=== PATIENT | male | born 1945 | race Caucasian/White ===

== ENCOUNTER 2018-02-16 10:52 | Outpatient (CLI) | payer MEDICARE ==
[2018-02-16 11:18] LABS: #Basophils 0.1 thou/uL (0.0-0.2); #Eosinphils 0.4 thou/uL (0.0-0.7); #Lymphocytes 1.9 thou/uL (1.20-3.40); #Monocytes 0.8 thou/uL (0.11-0.59); #Neutrophils 4.8 thou/uL (1.40-6.50); %Basophils 1.3 % (0.0-1.0); %Eosinophils 5.4 % (0.0-10.0); %Lymphocytes 23.8 % (21.0-51.0); %Monocytes 9.3 % (0.0-10.0); %Neutrophils 60.2 % (42.0-75.0); Hemoglobin 13.2 g/dL (14.0-18.0); Mean Corpuscular HGB CONC 32.8 g/dL (32.0-36.0); Mean Corpuscular Volume 94.7 fL (78.0-98.0); Platelet Count 125 thou/uL (130-400); Red Blood Cell (RBC) Count 4.25 mill/uL (4.70-6.10)
== END 2018-02-16 10:53 | disposition home or self-care (01) ==
LOC: MADLAB 10:52
PROVIDERS: ATTEND Internal Medicine Cardiovascular Disease
DX: Z01.810 Encounter for preprocedural cardiovascular examination (principal); I25.10 Atherosclerotic heart disease of native coronary artery without angina pectoris
CPT/HCPCS: 36415; 85025

== ENCOUNTER 2020-02-10 07:19 | Outpatient (CLI) | payer MEDICARE ==
[2020-02-10 08:19] LABS: Anion Gap 14 mmol/L (10-20); BUN (Urea Nitrogen) 26 mg/dL (8.4-25.7); Calc. Creatinine Clearance 0 mL/min (70-130); Calcium 8.9 mg/dL (7.8-10.44); Carbon Dioxide 27 mmol/L (23-31); Chloride 108 mmol/L (98-107); Estimated GFR-MDRD 52; Glucose 109 mg/dL (83-110); Potassium 4.3 mmol/L (3.5-5.1); Sodium 145 mmol/L (136-145)
[2020-02-10 08:26] LABS: #Basophils 0.1 thou/uL (0.0-0.2); #Eosinphils 0.5 thou/uL (0.0-0.7); #Lymphocytes 1.9 thou/uL (1.20-3.40); #Monocytes 1.1 thou/uL (0.11-0.59); #Neutrophils 4.6 thou/uL (1.40-6.50); %Basophils 1.6 % (0.0-1.0); %Eosinophils 5.8 % (0.0-10.0); %Lymphocytes 22.9 % (21.0-51.0); %Monocytes 13.1 % (0.0-10.0); %Neutrophils 56.6 % (42.0-75.0); Hemoglobin 11.4 g/dL (14.0-18.0); Mean Corpuscular HGB CONC 31.8 g/dL (32.0-36.0); Mean Corpuscular Hemoglobin 30.1 pg (27.0-31.0); Mean Corpuscular Volume 94.5 fL (78.0-98.0); Mean Platelet Volume 9.2 fL (7.4-10.4); Platelet Count 145 thou/uL (130-400); RBC Distribution Width 13.7 % (11.5-14.5); Red Blood Cell (RBC) Count 3.81 mill/uL (4.70-6.10); White Blood Cell (WBC) Count 8.1 thou/uL (4.8-10.8)
[2020-02-10 17:33] LABS: SARS-CoV-2 MS2 Positive; SARS-CoV-2 N Gene Negative; SARS-CoV-2 S Gene Negative; SARS-CoV-2 by NAA Not Detected (NotDetected); SARS-CoV-2 orf1ab Negative
== END 2020-02-10 07:20 | disposition home or self-care (01) ==
LOC: MADLAB 07:19
DX: I87.2 Venous insufficiency (chronic) (peripheral) (principal); I73.9 Peripheral vascular disease, unspecified; Z20.828 Contact with and (suspected) exposure to other viral communicable diseases
CPT/HCPCS: 36415; 80048; 85025; 87635; U0003

== ENCOUNTER 2020-02-24 12:53 | Emergency (ER) | payer MEDICARE ==
--- NOTE | 2020-02-24 13:54 | RAD ---
LEFT FOOT 3 VIEWS: Date: 02/24/2020 HISTORY: Injury. FINDINGS: Tarsals appear intact. Degenerative changes are noted in the intertarsal joints and small spur from t he plantar calcaneus. There is a fracture involving the mid shaft of the second metatarsal without significant displacement apparent. MTP and IP joints are unremarkable. No other fracture seen. IMPRESSION: Fracture mid shaft second metatarsal. POS: AGW
== END 2020-02-24 14:08 | disposition home or self-care (01) ==
LOC: MADERS 12:53
DX: S92.322A Displaced fracture of second metatarsal bone, left foot, initial encounter for closed fracture (principal); E78.5 Hyperlipidemia, unspecified; E78.00 Pure hypercholesterolemia, unspecified; F41.9 Anxiety disorder, unspecified; Z95.1 Presence of aortocoronary bypass graft; Z86.718 Personal history of other venous thrombosis and embolism; Z79.01 Long term (current) use of anticoagulants; Z79.899 Other long term (current) drug therapy
CPT/HCPCS: 12001

== ENCOUNTER 2020-02-25 10:08 | Emergency (ER) | payer MEDICARE ==
[2020-02-25] MEDS ORDERED: Silver Nitrate Application 1 EACH ONE (11:17)
[2020-02-25] MEDS ORDERED: Boostrix 0.5 ML (Tdap) VIAL ONE (11:41)
== END 2020-02-25 11:47 | disposition home or self-care (01) ==
LOC: MADERS 10:08
DX: R58 Hemorrhage, not elsewhere classified (principal); S90.812D Abrasion, left foot, subsequent encounter; R60.0 Localized edema; Z79.899 Other long term (current) drug therapy; Z79.01 Long term (current) use of anticoagulants; X58.XXXD Exposure to other specified factors, subsequent encounter
CPT/HCPCS: 90471; 90715; 99283

== ENCOUNTER 2021-11-01 18:58 | Emergency (ER) | payer MEDICARE | END 2021-11-01 19:59 | disposition home or self-care (01) | LOC: MADERS 18:58 | DX: I10 Essential (primary) hypertension (principal); I25.10 Atherosclerotic heart disease of native coronary artery without angina pectoris; E66.9 Obesity, unspecified; I73.9 Peripheral vascular disease, unspecified; Z68.45 Body mass index [BMI] 70 or greater, adult; Z79.899 Other long term (current) drug therapy | CPT/HCPCS: 99283 ==

== ENCOUNTER 2024-04-23 11:43 | Emergency (ER) | payer MEDICARE ==
[2024-04-23] MEDS ORDERED: Sodium Chloride 0.9% 1,000 ML ONE (12:32)
[2024-04-23 12:36] LABS: Base Excess-Venous -1.1 mmol/L (-2.0 to 3.0); CO2 Tension (PvCO2) 40.9 mmHg (42.0-51.0); Calcium, Ionized 1.16 mmol/L (1.15-1.33); Chloride 115 mmol/L (98-107); Hemoglobin - Calc 9.7 g/dL (14.0-18.0); Potassium 4.1 mmol/L (3.5-5.1); Sodium 148 mmol/L (138-145); T. Carbon Dioxide 25.3 mmol/L (22.0-28.0); vO2 Saturation-calc 84.7 % (60.0-85.0)
[2024-04-23 12:42] LABS: ALT (SGPT) 29 U/L (8-55); AST (SGOT) 64 U/L (5-34); Albumin 3.3 g/dL (3.4-4.8); Alkaline Phosphatase 153 U/L (40-110); Anion Gap 13 mmol/L (10-20); BUN (Urea Nitrogen) 21 mg/dL (8.4-25.7); Calc. Creatinine Clearance 0 mL/min (70-130); Calcium 8.8 mg/dL (7.8-10.44); Carbon Dioxide 21 mmol/L (23-31); Chloride 116 mmol/L (98-107); Estimated GFR 56; Globulin 3.4 g/dL (2.4-3.5); Glucose 110 mg/dL (83-110); Magnesium 2.2 mg/dL (1.6-2.6); Potassium 4.1 mmol/L (3.5-5.1); Protein, Total 6.7 g/dL (5.8-8.1); Sodium 146 mmol/L (136-145); Troponin I 0.042 ng/mL (< 0.028)
[2024-04-23 12:43] LABS: Anisocytosis SLIGHT = 6-15 cells (100X) (0-5/hpf); Band 3 % (5-11); Eosinophils 4 % (0-10); Hematocrit 29.6 % (42.0-52.0); Hemoglobin 9.1 g/dL (14.0-18.0); Hypochromia SLIGHT = 6-15 cells (100X) (0-5/hpf); Lymphocytes 15 % (21-51); MDiff Complete? YES; Mean Corpuscular HGB CONC 30.7 g/dL (32.0-36.0); Mean Corpuscular Hemoglobin 29.3 pg (27.0-31.0); Mean Corpuscular Volume 95.3 fl (78.0-98.0); Mean Platelet Volume 8.8 fL (7.4-10.4); Monocytes 16 % (0-10); Neutrophil 53 % (42-75); Platelet Adequacy Comment Appears Decreased; Platelet Count 101 10x3/uL (130-400); RBC Distribution Width 22.2 % (11.5-14.5); Red Blood Cell (RBC) Count 3.11 mill/uL (4.70-6.10); White Blood Cell (WBC) Count 5.5 10x3/uL (4.8-10.8)
[2024-04-23 13:40] LABS: Bilirubin Negative (Negative); Blood, Urine Negative (Negative); Clarity Clear (Clear); Glucose, Urine (Dipstick) Negative (Negative); Ketone, Urine Negative (Negative); Leukocyte Negative (Negative); Nitrite Negative (Negative); Protein, Urine (Dipstick) Negative (Neg-Trace); Specific Gravity, Urine 1.015 (1.005-1.030); Urobilinogen 0.2 mg/dL (Less than 2)
[2024-04-23 13:46] LABS: Amphetamine Not Detected (NotDetected); Barbiturates Screen Not Detected (NotDetected); Benzodiazepine Screen Not Detected (NotDetected); Cocaine Metabolite Screen Not Detected (NotDetected); Methadone Not Detected (NotDetected); Methamphetamine Not Detected (NotDetected); Opiate Screen Not Detected (NotDetected); Oxycodone Screen Not Detected (NotDetected); Phencyclidine (PCP) Not Detected (NotDetected); THC/Cannabinoid Screen Not Detected (NotDetected); Tricyclic Screen Not Detected (NotDetected)
[2024-04-23 13:47] LABS: Bacteria/HPF None Seen HPF (None Seen); CAUTI Indications for Culture Alt mental st,lethar; RBC/HPF 0-3 HPF (0-3); Squamous Epithelial 0-3 HPF (0-3); WBC/HPF 0-3 HPF (0-3)
[2024-04-23 13:48] LABS: Urine Culture Reflex No No
[2024-04-23 14:09] LABS: Troponin I 0.053 ng/mL (< 0.028)
[2024-04-23] MEDS ORDERED: Lorazepam 2 MG/ML VIAL ONE ×2 (18:41→19:33)
[2024-04-23 20:26] LABS: Troponin I 0.062 ng/mL (< 0.028)
== END 2024-04-23 22:29 | disposition short-term general hospital (02) ==
LOC: MADERS 11:43
DX: R41.82 Altered mental status, unspecified (principal); I11.0 Hypertensive heart disease with heart failure; I50.9 Heart failure, unspecified; I25.10 Atherosclerotic heart disease of native coronary artery without angina pectoris; G25.81 Restless legs syndrome; Z79.82 Long term (current) use of aspirin; Z79.899 Other long term (current) drug therapy
CPT/HCPCS: 70450; 71045; 72125; 80053; 80306; 81001; 82330; 82435; 82803; 83605; 83735; 83880; 84132; 84295; 84484; 85014; 85025; 93005; 96374; 96376; J2060; J7030

== ENCOUNTER 2024-04-26 16:09 | Inpatient (IN) | payer MEDICARE ==
[2024-04-26 22:57] VITALS: BMI 30.1
[2024-04-26] MEDS ORDERED: Acetaminophen 325 MG TAB PO PRN (23:00)
[2024-04-27] MEDS ORDERED: Senokot S 8.6-50 MG TAB PO PRN (09:31)
[2024-04-27] MEDS ORDERED: Acetaminophen 325 MG TAB PO PRN (09:31)
[2024-04-27] MEDS ORDERED: Bisacodyl 10 MG SUPP PR PRN (09:31)
[2024-04-27] MEDS ORDERED: Bisacodyl 5 MG TAB PO PRN (09:31)
[2024-04-27] MEDS: Lactulose 20 GM (30 mL) UDCUP PO SCH (14:54)
[2024-04-27 14:59] VITALS: BMI 30.1
[2024-04-27] MEDS: Ezetimibe 10 MG TAB PO SCH (20:22)
[2024-04-27] MEDS: Losartan 25 MG TAB PO SCH (20:22)
[2024-04-27] MEDS: Ferrous Sulfate 325 MG TAB PO SCH (20:22)
[2024-04-27] MEDS: Simvastatin 40 MG TAB PO SCH (20:22)
[2024-04-27] MEDS: Folic Acid 1 MG TAB PO SCH (20:22)
[2024-04-28 05:51] LABS: ALT (SGPT) 29 U/L (8-55); AST (SGOT) 66 U/L (5-34); Albumin 2.7 g/dL (3.4-4.8); Alkaline Phosphatase 169 U/L (40-110); Anion Gap 12 mmol/L (10-20); BUN (Urea Nitrogen) 15 mg/dL (8.4-25.7); Bilirubin, Total 0.9 mg/dL (0.2-1.2); Calc. Creatinine Clearance 78 mL/min (70-130); Calcium 8.2 mg/dL (7.8-10.44); Carbon Dioxide 20 mmol/L (23-31); Chloride 116 mmol/L (98-107); Estimated GFR 67; Globulin 3.2 g/dL (2.4-3.5); Glucose 99 mg/dL (83-110); Potassium 3.8 mmol/L (3.5-5.1); Protein, Total 5.9 g/dL (5.8-8.1); Sodium 144 mmol/L (136-145)
[2024-04-28 06:23] LABS: Hematocrit 26.2 % (42.0-52.0); Hemoglobin 8.3 g/dL (14.0-18.0); Mean Corpuscular HGB CONC 31.7 g/dL (32.0-36.0); Mean Corpuscular Hemoglobin 30.3 pg (27.0-31.0); Mean Corpuscular Volume 95.7 fl (78.0-98.0); Mean Platelet Volume 9.6 fL (7.4-10.4); Platelet Count 107 10x3/uL (130-400); Red Blood Cell (RBC) Count 2.74 mill/uL (4.70-6.10); White Blood Cell (WBC) Count 6.1 10x3/uL (4.8-10.8)
[2024-04-28 06:24] LABS: Band 1 % (5-11); Eosinophils 7 % (0-10); Lymphocytes 23 % (21-51); MDiff Complete? YES; Manual Diff?? YES; Monocytes 18 % (0-10); Neutrophil 51 % (42-75)
[2024-04-28 06:25] LABS: Anisocytosis SLIGHT = 6-15 cells (100X) (0-5/hpf); Platelet Adequacy Comment Appears Decreased
[2024-04-28] MEDS: Furosemide 40 MG TAB PO SCH (09:05)
[2024-04-28] MEDS: Pantoprazole DR 40 MG TAB PO SCH (09:05)
[2024-04-28] MEDS: Aspirin Chewable 81 MG TAB PO SCH (09:05)
[2024-04-28] MEDS: Potassium Chloride 10 MEQ TAB PO SCH (09:05)
[2024-04-28] MEDS: sulfaSALAzine 500 MG TAB PO SCH (09:05)
[2024-05-04] MEDS: Ondansetron ODT 4 MG TAB SL PRN (16:45)
[2024-05-05] MEDS: Magnesium Oxide 400 MG TAB PO PRN (20:35)
[2024-05-07 19:55] VITALS: BP 131/80; TEMP 98.8
== END 2024-05-07 20:17 | disposition home or self-care (01) | DRG 945 ==
LOC: MADMS 21:38
PROVIDERS: ADMIT Family Medicine; ATTEND Family Medicine
PROC: F07Z9ZZ Gait Training/Functional Ambulation Treatment (ICD-10-PCS; principal; 2024-04-28)
DX: R53.81 Other malaise (principal); C16.9 Malignant neoplasm of stomach, unspecified; K51.90 Ulcerative colitis, unspecified, without complications; I50.22 Chronic systolic (congestive) heart failure; K74.60 Unspecified cirrhosis of liver; I25.10 Atherosclerotic heart disease of native coronary artery without angina pectoris; E66.9 Obesity, unspecified; R29.6 Repeated falls; D63.8 Anemia in other chronic diseases classified elsewhere; E78.5 Hyperlipidemia, unspecified; K76.82 Hepatic encephalopathy; I11.0 Hypertensive heart disease with heart failure; Z90.49 Acquired absence of other specified parts of digestive tract; Z95.1 Presence of aortocoronary bypass graft; Z86.718 Personal history of other venous thrombosis and embolism; Z79.01 Long term (current) use of anticoagulants; Z88.1 Allergy status to other antibiotic agents
CPT/HCPCS: 36415; 70450; 71045; 72125; 80053; 80306; 81001; 82140; 82274; 82330; 82435; 82803; 83605; 83735; 83880; 84132; 84295; 84484; 85014; 85025; 93005; 96374; 96376; J2060; J7030; Q0162

== ENCOUNTER 2024-04-26 17:29 | Emergency (ER) | payer MEDICARE ==
[2024-04-26 19:16] LABS: ALT (SGPT) 29 U/L (8-55); AST (SGOT) 67 U/L (5-34); Albumin 2.7 g/dL (3.4-4.8); Alkaline Phosphatase 157 U/L (40-110); Anion Gap 12 mmol/L (10-20); BUN (Urea Nitrogen) 20 mg/dL (8.4-25.7); Bilirubin, Total 0.9 mg/dL (0.2-1.2); Calc. Creatinine Clearance 0 mL/min (70-130); Calcium 8.1 mg/dL (7.8-10.44); Carbon Dioxide 21 mmol/L (23-31); Chloride 114 mmol/L (98-107); Estimated GFR 60; Glucose 110 mg/dL (83-110); Potassium 4.2 mmol/L (3.5-5.1); Protein, Total 5.7 g/dL (5.8-8.1); Sodium 143 mmol/L (136-145)
[2024-04-26 19:17] LABS: Troponin I 0.055 ng/mL (< 0.028)
[2024-04-26 19:32] LABS: Band 3 % (5-11); Eosinophils 5 % (0-10); Hematocrit 24.9 % (42.0-52.0); Hemoglobin 7.9 g/dL (14.0-18.0); Hypochromia MODERATE=16-30 cells (100X) (0-5/hpf); Lymphocytes 20 % (21-51); MDiff Complete? YES; Mean Corpuscular HGB CONC 31.6 g/dL (32.0-36.0); Mean Corpuscular Hemoglobin 30.1 pg (27.0-31.0); Mean Corpuscular Volume 95.2 fl (78.0-98.0); Mean Platelet Volume 10.5 fL (7.4-10.4); Monocytes 15 % (0-10); Neutrophil 56 % (42-75); Platelet Adequacy Comment Appears Decreased; Platelet Count 89 10x3/uL (130-400); RBC Distribution Width 21.5 % (11.5-14.5); Red Blood Cell (RBC) Count 2.62 mill/uL (4.70-6.10); White Blood Cell (WBC) Count 5.8 10x3/uL (4.8-10.8)
[2024-04-26 20:49] LABS: Bilirubin Negative (Negative); Blood, Urine Negative (Negative); Glucose, Urine (Dipstick) Negative (Negative); Ketone, Urine 15 mg/dL (Negative); Leukocyte Negative (Negative); Nitrite Negative (Negative); Protein, Urine (Dipstick) Negative (Neg-Trace); pH, Urine 6.5 (5.0-9.0)
[2024-04-26 20:50] LABS: Bacteria/HPF Rare-Few HPF (None Seen); CAUTI Indications for Culture Dysuria,urgency,freq; Clarity Clear (Clear); RBC/HPF 0-3 HPF (0-3); Squamous Epithelial 0-3 HPF (0-3); WBC/HPF 0-3 HPF (0-3)
[2024-04-26 20:51] LABS: Urine Culture Reflex No No
[2024-04-26] MEDS ORDERED: Aspirin Chewable 81 MG TAB ONE (21:02)
== END 2024-04-26 22:00 ==
LOC: MADERS 17:29
DX: R53.1 Weakness (principal); R53.81 Other malaise; I25.10 Atherosclerotic heart disease of native coronary artery without angina pectoris; I10 Essential (primary) hypertension; Z79.899 Other long term (current) drug therapy; Z79.82 Long term (current) use of aspirin
CPT/HCPCS: 36415; 70450; 71045; 80053; 81001; 82140; 82274; 83880; 84484; 85025; 93005

== ENCOUNTER 2024-10-25 17:57 | Inpatient (IN) | payer MEDICARE ==
[2024-10-25 20:12] VITALS: BMI 22.6
[2024-10-26 05:33] LABS: Anisocytosis SLIGHT = 6-15 cells (100X) (0-5/hpf); Hematocrit 27.8 % (42.0-52.0); Hemoglobin 8.7 g/dL (14.0-18.0); MDiff Complete? YES; Mean Corpuscular Hemoglobin 31.5 pg (27.0-31.0); Mean Corpuscular Volume 100.3 fl (78.0-98.0); Platelet Count 69 10x3/uL (130-400); Poikilocytosis SLIGHT = 6-15 cells (100X) (0-5/hpf); Red Blood Cell (RBC) Count 2.77 mill/uL (4.70-6.10); White Blood Cell (WBC) Count 4.8 10x3/uL (4.8-10.8)
[2024-10-26 05:35] LABS: Platelet Adequacy Comment Platelets Decreased
[2024-10-26 05:36] LABS: ALT (SGPT) 20 U/L (Less than 45); AST (SGOT) 54 U/L (11-34); Albumin 2.5 g/dL (3.1-4.5); Alkaline Phosphatase 179 U/L (40-110); Anion Gap 12 mmol/L (10-20); BUN (Urea Nitrogen) 25 mg/dL (8.4-25.7); Bilirubin, Total 0.5 mg/dL (0.3-1.2); Calc. Creatinine Clearance 41 mL/min (70-130); Calcium 7.9 mg/dL (7.8-10.44); Carbon Dioxide 18 mmol/L (23-31); Chloride 110 mmol/L (98-107); Globulin 3.1 g/dL (2.4-3.5); Glucose 89 mg/dL (83-110); Potassium 4.3 mmol/L (3.5-5.1); Sodium 136 mmol/L (136-145)
[2024-10-26] MEDS: Magnesium Oxide 400 MG TAB PO SCH (08:26)
[2024-10-26] MEDS: Aspirin Chewable 81 MG TAB PO SCH (08:28)
[2024-10-26] MEDS: Rifaximin 550 MG TAB PO SCH (08:28)
[2024-10-26] MEDS: Amoxicillin/Potassium Clav 875 MG TAB PO SCH (08:28)
[2024-10-26] MEDS: Spironolactone 25 MG TAB PO SCH (08:28)
[2024-10-26] MEDS: Lactulose 20 GM (30 mL) UDCUP PO SCH (08:28)
[2024-10-26] MEDS: Folic Acid 1 MG TAB PO SCH (08:28)
[2024-10-26] MEDS: Megestrol Acetate 400 MG/10 ML UDCUP PO SCH (08:29)
[2024-10-26] MEDS: Simvastatin 40 MG TAB PO SCH (20:00)
[2024-10-26] MEDS: Pantoprazole 40 MG DR.TAB PO SCH (20:00)
[2024-10-26] MEDS: Ezetimibe 10 MG TAB PO SCH (20:00)
[2024-10-29 06:47] VITALS: BMI 23.6
[2024-10-30 09:52] LABS: Hematocrit 25.9 % (42.0-52.0); Hemoglobin 8.1 g/dL (14.0-18.0); Mean Corpuscular Hemoglobin 32.0 pg (27.0-31.0); Mean Corpuscular Volume 102.3 fl (78.0-98.0); Platelet Count 101 10x3/uL (130-400); Red Blood Cell (RBC) Count 2.53 mill/uL (4.70-6.10); White Blood Cell (WBC) Count 5.0 10x3/uL (4.8-10.8)
[2024-10-30 09:56] LABS: MDiff Complete? YES; Manual Diff?? YES
[2024-10-30 09:58] LABS: Macrocytosis SLIGHT = 6-15 cells (100X) (0-5/hpf); Polychromasia SLIGHT = 2-3 cells (100X) (0-2/hpf)
[2024-10-30 09:59] LABS: Platelet Adequacy Comment Appears Decreased
[2024-10-31] MEDS ORDERED: Ferrous Sulfate 325 MG TAB PO SCH (08:00)
[2024-11-01] MEDS: Ferrous Sulfate 325 MG TAB PO SCH (08:38)
[2024-11-01] MEDS: Furosemide 20 MG TAB PO SCH (16:33)
[2024-11-02] MEDS: Furosemide 20 MG TAB PO SCH (12:45)
[2024-11-02 23:36] VITALS: TEMP 98.3
[2024-11-03 07:12] VITALS: BP 120/60
== END 2024-11-03 17:45 | disposition home or self-care (01) | DRG 945 ==
LOC: MADMS 19:33
PROVIDERS: ADMIT Family Medicine; ATTEND Family Medicine
PROC: F07Z9ZZ Gait Training/Functional Ambulation Treatment (ICD-10-PCS; principal; 2024-11-01)
DX: R53.81 Other malaise (principal); E43 Unspecified severe protein-calorie malnutrition; I13.0 Hypertensive heart and chronic kidney disease with heart failure and stage 1 through stage 4 chronic kidney disease, or unspecified chronic kidney disease; I50.22 Chronic systolic (congestive) heart failure; I5A Non-ischemic myocardial injury (non-traumatic); N39.0 Urinary tract infection, site not specified; D61.818 Other pancytopenia; K74.60 Unspecified cirrhosis of liver; N18.30 Chronic kidney disease, stage 3 unspecified; R63.0 Anorexia; R26.89 Other abnormalities of gait and mobility; D63.1 Anemia in chronic kidney disease; I25.10 Atherosclerotic heart disease of native coronary artery without angina pectoris; E78.5 Hyperlipidemia, unspecified; I48.91 Unspecified atrial fibrillation; E03.9 Hypothyroidism, unspecified; R62.7 Adult failure to thrive; F32.9 Major depressive disorder, single episode, unspecified; M19.90 Unspecified osteoarthritis, unspecified site; Z96.659 Presence of unspecified artificial knee joint; Z79.01 Long term (current) use of anticoagulants; Z79.899 Other long term (current) drug therapy; Z85.09 Personal history of malignant neoplasm of other digestive organs; Z92.3 Personal history of irradiation; Z92.21 Personal history of antineoplastic chemotherapy; Z68.25 Body mass index [BMI] 25.0-25.9, adult; Z88.1 Allergy status to other antibiotic agents; Z88.8 Allergy status to other drugs, medicaments and biological substances; Z87.19 Personal history of other diseases of the digestive system; Z90.49 Acquired absence of other specified parts of digestive tract; Z98.890 Other specified postprocedural states
CPT/HCPCS: 36415; 80053; 84443; 85025; Q0162